=== PATIENT | female | born 1955 ===

== ENCOUNTER → 2018-07-04 21:12 | Outpatient (REF) | payer OTHER, SELFPAY ==
[2018-07-04 21:21] LABS: Add Manual Diff / Slide Review NO; Basophils Percent Auto 0.8 % (0-2); Eosinophils Percent Auto 1.5 % (2-4); Hematocrit 38.8 % (36-46); Hemoglobin 13.1 g/dL (12.0-16.0); Lymphocytes Percent Auto 35.9 % (25-40); Mean Corpuscular HGB Conc 33.8 % (30-36); Mean Corpuscular Hemoglobin 32.7 PG (26-34); Monocytes Percent Auto 9.5 % (3-14); Neutrophils Absolute Auto 1700 /uL (1500-7000); Neutrophils Percent Auto 52.3 % (50-75); Platelet Count 163 X10^3/uL (150-400); White Blood Cell Count 3.3 X10^3/uL (4.5-11.0)
[2018-07-04 22:24] LABS: Alanine Aminotransferase 58 IU/L (9-52); Albumin 4.5 g/dL (3.5-5.0); Albumin Globulin Ratio 1.6 (1.0-2.8); Alkaline Phosphatase 66 U/L (38-126); Aspartate Aminotransferase 58 IU/L (14-36); BUN Creatinine Ratio 21.3 (6-22); Bilirubin Total 0.6 mg/dL (0.2-1.3); Blood Urea Nitrogen 17 mg/dL (7-17); Calcium 9.5 mg/dL (8.4-10.2); Carbon Dioxide 29 mmol/L (22-32); Chloride 102 mmol/L (98-107); Estimated Glomerular Filt Rate > 60.0 mL/min (>60); Globulin 2.8 g/dL (1.7-4.1); Glucose 76 mg/dL (80-110); HEMOLYSIS < 15 (0-50); Potassium 4.1 mmol/L (3.4-5.1); Sodium 140 mmol/L (137-145); Total Protein 7.3 g/dL (6.3-8.2)
[2018-07-04 22:30] LABS: High Sensitivity CRP - Cardiac 0.3 mg/L (1.0-3.0); Rheumatoid Factor < 8.6 IU/mL (<12.0)
[2018-07-04 22:45] LABS: Free T4, Direct Thyroxine 0.86 ng/dL (0.78-2.19)
[2018-07-04 22:58] LABS: Thyroid Stimulating Hormone 1.34 uIU/mL (0.47-4.68)
[2018-07-07 08:00] LABS: Triiodothyronine T3 Total 124 ng/dL (76-181)
[2018-07-07 12:00] LABS: CCP Antibody (IgG) < 16 Units (< 20)
== END ==
LOC: LAB 21:12
PROVIDERS: Visit Provider Family Medicine
DX: Z00.00 Encounter for general adult medical examination without abnormal findings (principal); E03.9 Hypothyroidism, unspecified; M25.50 Pain in unspecified joint
CPT/HCPCS: 36415; 80053; 83516; 84439; 84443; 84480; 84481; 85025; 86140; 86430